=== PATIENT | male | born 1945 | race Caucasian/White ===

== ENCOUNTER 2019-10-05 21:41 | Emergency (ER) | payer OTHER, BC ==
[~2019-10-05] VITALS: Ht 177.8 cm; Wt 80.7 kg
[2019-10-05 21:53] VITALS: Ht 177.8 cm; Wt 80.7 kg
[2019-10-05 22:57] LABS: CALCIUM 8.2 mg/dL (8.5-10.1); CARBON DIOXIDE 28.7 mmol/L (21-32); CHLORIDE SERUM 105 mmol/L (98-107); CREATININE SERUM 1.1 mg/dL (0.7-1.3); GLUCOSE SERUM 97 mg/dL (74-106); SODIUM SERUM 138 mmol/L (136-145)
[2019-10-05 23:01] LABS: ALKALINE PHOSPHATASE 64 U/L (46-116); ALT/SGPT 10 U/L (16-63); AST/SGOT 20 U/L (15-37); BILIRUBIN TOTAL 0.37 mg/dL (0.20-1.00); LIPASE 259 IU/L (73-393)
[2019-10-05 23:03] LABS: ALBUMIN 2.6 g/dL (3.4-5.0); TOTAL PROTEIN, SERUM 5.4 g/dL (6.4-8.2)
[2019-10-05 23:09] LABS: BASOPHIL % 0.7 % (0-2); PLATELET COUNT 245 x10^3mcL (130-400)
[2019-10-05 23:11] LABS: RED CELL DISTRIBUTION WIDTH 18.3 % (11.5-14.5)
[2019-10-06 00:24] VITALS: BP 121/79
== END 2019-10-06 00:24 | disposition home or self-care (01) ==
LOC: ED 21:41
PROVIDERS: Emergency Medicine
DX: K92.0 Hematemesis (principal); I10 Essential (primary) hypertension; E11.9 Type 2 diabetes mellitus without complications; E78.00 Pure hypercholesterolemia, unspecified; M19.90 Unspecified osteoarthritis, unspecified site; E03.9 Hypothyroidism, unspecified
CPT/HCPCS: 36415